=== PATIENT | female | born 1980 | race Caucasian/White ===

== ENCOUNTER 2022-01-17 19:47 | Emergency (ER) | payer OTHER ==
[2022-01-17 21:02] LABS: HEMOGLOBIN 14.4 gm/dl (12.3-15.3); RED BLOOD COUNT 4.46 M/UL (4.00-5.10); WHITE BLOOD COUNT 14.1 K/UL (4.5-11.0)
[2022-01-17 21:25] LABS: BUN/CREATININE RATIO 15 (0-10)
== END 2022-01-18 01:00 | disposition left against medical advice (07) ==
LOC: ER1 19:47
PROVIDERS: Nurse Practitioner
DX: M25.522 Pain in left elbow (principal); M25.532 Pain in left wrist; M79.602 Pain in left arm; Z88.5 Allergy status to narcotic agent; F17.210 Nicotine dependence, cigarettes, uncomplicated
CPT/HCPCS: 73090; 80053; 85025; 99283